=== PATIENT | female | born 1975 | race Native Hawaiian/Other Pacific Islander ===

== ENCOUNTER 2017-10-20 08:32 | Outpatient (CLI) | payer BC | END 2017-10-20 19:12 | disposition home or self-care (01) | LOC: LABW 08:32 | DX: R05 Cough (principal); R09.3 Abnormal sputum; R50.9 Fever, unspecified; R53.83 Other fatigue; I88.8 Other nonspecific lymphadenitis | CPT/HCPCS: 36415; 87040 ==

== ENCOUNTER 2021-03-20 11:38 | Outpatient (CLI) | payer BC | END 2021-03-20 22:01 | disposition home or self-care (01) | LOC: MAMMO 11:38 | PROVIDERS: ATTEND Internal Medicine | DX: F17.210 Nicotine dependence, cigarettes, uncomplicated (principal); R63.4 Abnormal weight loss; Z12.31 Encounter for screening mammogram for malignant neoplasm of breast ==

== ENCOUNTER 2022-03-30 10:19 | Outpatient (CLI) | payer BC | END 2022-03-30 18:49 | disposition home or self-care (01) | LOC: MAMMO 10:19 | PROVIDERS: ATTEND Obstetrics & Gynecology | DX: Z12.31 Encounter for screening mammogram for malignant neoplasm of breast (principal) ==